=== PATIENT | male | born 1970 | race African-American/Black ===

== ENCOUNTER 2019-01-05 14:00 | Outpatient (RCR) | payer OTHER | END 2019-04-05 | disposition home or self-care (01) | LOC: WSC | DX: Z02.71 Encounter for disability determination (principal) ==

== ENCOUNTER → 2019-01-30 | Outpatient (CLI) | payer OTHER | LOC: COL.RAD 09:21 | DX: Z02.71 Encounter for disability determination (principal); M17.11 Unilateral primary osteoarthritis, right knee; M77.31 Calcaneal spur, right foot; M46.95 Unspecified inflammatory spondylopathy, thoracolumbar region; M48.07 Spinal stenosis, lumbosacral region; Z87.81 Personal history of (healed) traumatic fracture; Z98.890 Other specified postprocedural states ==

== ENCOUNTER 2023-07-07 16:17 | Inpatient (IN) | payer BC ==
[2023-07-07] VITALS (7 sets, daily range): BP systolic 138–198; BP diastolic 75–139; PULSE 89–113; TEMP 98.2–98.6
[~2023-07-07] VITALS: Ht 172.7 cm; Wt 204.0 kg
[2023-07-07 16:56] LABS: BASO # 0.1 K/mm3 (0.0-0.2); BASO % 0.8 % (0.0-2.0); EOS # 0.1 K/mm3 (0.0-0.7); EOS % 1.2 % (0.0-4.0); GRAN # 4.6 K/mm3 (1.4-6.5); GRAN % 60.9 % (42.2-75.2); HEMOGLOBIN 12.9 g/dl (13.5-18.0); LYMPH # 1.9 K/mm3 (1.2-3.4); LYMPH % 25.1 % (20.0-51.0); MEAN CELL VOLUME 83 fl (80.0-100.0); MEAN CORPUSCULAR HEMOGLOBIN 25 pg (27-31); MEAN CORPUSCULAR HGB CONC 31 g/dl (33.0-37.0); MEAN PLATELET VOLUME 9.3 fl (7.4-10.4); MONO # 0.9 K/mm3 (0.1-0.6); MONO % 11.9 % (1.7-9.3); PLATELET COUNT 307 K/mm3 (130-400); RED BLOOD COUNT 5.08 M/mm3 (4.20-5.60); REDCELL DISTRIBUTION WIDTH-CV 16.6 % (11.5-14.5)
[2023-07-07 17:06] LABS: INR 1.2 (0.8-3.0); PROTHROMBIN TIME 12.7 SECONDS (9.7-12.8)
[2023-07-07 17:15] LABS: ALANINE AMINOTRANSFERASE 12 U/L (0-55); ALBUMIN 2.9 g/dL (3.5-5.0); ALKALINE PHOSPHATASE 60 U/L (40-150); ANION GAP 12 mmol/L (7-16); AST,SGOT 13 U/L (5-34); BILIRUBIN,TOTAL 0.2 mg/dL (0.2-1.2); BLOOD UREA NITROGEN 15 mg/dL (8-26); CALCIUM 9.5 mg/dL (8.4-10.2); CHLORIDE 103 mEq/L (98-107); CREATININE, serum 1.07 mg/dL (0.72-1.25); GLUCOSE 102 mg/dL (70-99); POTASSIUM 4.4 mEq/L (3.5-4.5); SODIUM 139 mEq/L (136-145); TOTAL PROTEIN 8.6 g/dl (6.2-8.1)
[2023-07-07 17:22] LABS: TROPONIN-I < 0.010 ng/mL (0.00-0.033)
[2023-07-07] MEDS ORDERED: hydrALAZINE 20 MG/ML 1 ML VIAL IV ONE (18:30)
[2023-07-07] MEDS ORDERED: amLODIPine 5 MG TAB PO SCH (18:45)
[2023-07-07] MEDS ORDERED: Acetaminophen 325 MG TAB PO PRN (18:45)
[2023-07-07] MEDS ORDERED: niCARdipine 200 ML IV ONE (18:45)
[2023-07-07] MEDS ORDERED: Lisinopril 20 MG TAB PO SCH (18:45)
[2023-07-07] MEDS ORDERED: niCARdipine 200 ML IV SCH (19:15)
[2023-07-07] MEDS ORDERED: Heparin 5,000 UNITS/ML 1 ML VIAL IV ONE (19:30)
[2023-07-07] MEDS ORDERED: Heparin 5,000 UNITS/ML 1 ML VIAL IV PRN (19:30)
[2023-07-07] MEDS ORDERED: Heparin/D5W 250 ML IV SCH (19:30)
[2023-07-07 20:24] LABS: PARTIAL THROMBOPLASTIN TIME 31.8 SECONDS (26.0-37.0)
[2023-07-07] MEDS ORDERED: HYDROmorphone 0.5 MG/0.5 ML SYRINGE IV PRN (21:00)
[2023-07-07] MEDS ORDERED: Tetanus,Diphther Toxoid Adult 0.5 ML SYRINGE IM ONE (22:30)
[2023-07-08] VITALS (298 sets, daily range): BP systolic 140–164; BP diastolic 85–111; PULSE 80–92; TEMP 98–98.6; O2SAT 85–100
[2023-07-08 04:17] LABS: BASO % 0.4 % (0.0-2.0); EOS # 0.1 K/mm3 (0.0-0.7); EOS % 1.3 % (0.0-4.0); GRAN # 4.5 K/mm3 (1.4-6.5); GRAN % 60.9 % (42.2-75.2); HEMATOCRIT 38.9 % (42.0-52.0); HEMOGLOBIN 12.6 g/dl (13.5-18.0); LYMPH % 26.5 % (20.0-51.0); MEAN CELL VOLUME 80 fl (80.0-100.0); MEAN CORPUSCULAR HEMOGLOBIN 26 pg (27-31); MEAN CORPUSCULAR HGB CONC 32 g/dl (33.0-37.0); MEAN PLATELET VOLUME 9.2 fl (7.4-10.4); MONO # 0.8 K/mm3 (0.1-0.6); MONO % 10.6 % (1.7-9.3); PLATELET COUNT 287 K/mm3 (130-400); RED BLOOD COUNT 4.84 M/mm3 (4.20-5.60); REDCELL DISTRIBUTION WIDTH-CV 16.5 % (11.5-14.5)
[2023-07-08 04:35] LABS: CALCIUM 8.7 mg/dL (8.4-10.2); CREATININE, serum 0.85 mg/dL (0.72-1.25); POTASSIUM 4.4 mEq/L (3.5-4.5)
[2023-07-08 05:11] LABS: C-REACTIVE PROTEIN 7.16 mg/dL (0.00-0.50)
--- NOTE | 2023-07-08 07:21 | NUR ---
RECEIVED REPORT FROM N[employer]SHIFT RNALIYAH. PATIENT RESTING IN BED WITH EYES CLOSED AT THIS TIME. BED IN A LOW POSITION. CALL LIGHT WITHIN REACH.
--- NOTE | 2023-07-08 08:10 | NUR ---
HEAD TO TOE ASSESSMENT COMPLETED. PATIENT ALERT AND ORIENTED. PUPILS EQUAL AND REACTIVE. HEART SOUNDS REGULAR WITH S1 AND S2 NOTED. LUNG SOUNDS CLEAR BILATERALLY WITH DIMINISHING NOTED IN BASES BILATERALLY. BOWEL SOUNDS ACTIVE X4. PATIENT ABLE TO VOID INDEPENDENTLY USING URINAL. PULSES PRESENT AND EQUAL BILATERALLY IN UPPER AND LOWER EXTREMITIES. PATIENT HAS EDEMA NOTED TO LOWER HALF OF BODY. PATIENT HAS COMPLAINTS OF PAIN TO RIGHT LOWER EXTREMITY IN CALF AREA. MEDICATIONS ADMINISTERED PER EMAR. PATIENT DENIES CONCERNS OR NEEDS AT THIS TIME. BED IN A LOW POSITION, ALARM ON. CALL LIGHT WITHIN REACH.
[2023-07-08] MEDS ORDERED: Labetalol 100 MG TAB PO SCH (10:51)
[2023-07-08] MEDS ORDERED: ceFAZolin 2 G in Water For Injection,Sterile 20 ML IV SCH (11:00)
[2023-07-08] MEDS ORDERED: Furosemide 40 MG TAB PO ONE (13:45)
--- NOTE | 2023-07-08 14:05 | NUR ---
merchant mill utility worker attended clinical rounding and met with patient to complete discharge assessment. Patient states that he lives with his , is independent with his activities of daily living, and works from home. Patient states he has had [facility] for years and has never had to use it. Patient states that he has an appointment in August to establish care at the [facility], however, doesn't remember what the physician's name is. Patient states his goes to this physician as well. Patient states he does not have advance directives and does not wish any information on them at this time. Discharge plan: Patient plans to return home with spouse.
[2023-07-08] MEDS ORDERED: Perflutren Lipid Microsphere 2 ML VIAL IV SCH (15:50)
--- NOTE | 2023-07-08 16:13 | NUR ---
REPORT CALLED TO JOURNEYMAN LINEMANAJMES. PATIENT TRANSFERRED VIA BED TO ROOM 330. ALL BELONGINGS AND CHART TAKEN WITH PATIENT.
[2023-07-08] MEDS ORDERED: TYLENOL 325MG325 MG PO (17:19)
[2023-07-08] MEDS ORDERED: TYLENOL PM EXTR1 TA1 PO (17:20)
--- NOTE | 2023-07-08 17:50 | NUR ---
Patient transferred from ICU to room 330. Patient tolerated dinner without problem. He reports elevated pain to his RLE. Open wound noted, foam dressing applied to wound. wound is to inner side of calf. Patient reports this has been on going for a few weeks. Pain rating 6. One tab norco as ordered. When completing med rec, patient reports he had been taking large amounts of tylneol at home. Int X2 Assisted patient to position in bed for comfort. Patient using urinal to void. Will monitor
[2023-07-08] MEDS ORDERED: amLODIPine 5 MG TAB PO ONE (18:15)
[2023-07-08] MEDS ORDERED: hydroCHLOROthiazide 25 MG TAB PO ONE (18:15)
[2023-07-09 03:46] VITALS: BP 145/89; PULSE 80; TEMP 98.2
[2023-07-09 04:00] VITALS: BP_SYST 145
[2023-07-09 06:59] LABS: BASO % 0.5 % (0.0-2.0); EOS # 0.1 K/mm3 (0.0-0.7); EOS % 2.1 % (0.0-4.0); GRAN # 3.5 K/mm3 (1.4-6.5); GRAN % 60.4 % (42.2-75.2); HEMATOCRIT 40.3 % (42.0-52.0); HEMOGLOBIN 12.5 g/dl (13.5-18.0); LYMPH # 1.4 K/mm3 (1.2-3.4); LYMPH % 24.2 % (20.0-51.0); MEAN CELL VOLUME 81 fl (80.0-100.0); MEAN CORPUSCULAR HEMOGLOBIN 25 pg (27-31); MEAN CORPUSCULAR HGB CONC 31 g/dl (33.0-37.0); MEAN PLATELET VOLUME 9.3 fl (7.4-10.4); MONO # 0.7 K/mm3 (0.1-0.6); MONO % 12.5 % (1.7-9.3); PLATELET COUNT 296 K/mm3 (130-400); RED BLOOD COUNT 4.99 M/mm3 (4.20-5.60); REDCELL DISTRIBUTION WIDTH-CV 16.5 % (11.5-14.5)
[2023-07-09 07:14] LABS: CREATININE, serum 1.02 mg/dL (0.72-1.25); POTASSIUM 4.6 mEq/L (3.5-4.5)
[2023-07-09 07:24] VITALS: BP 150/96; PULSE 86; TEMP 98.2
[2023-07-09] MEDS ORDERED: amLODIPine 10 MG TAB PO SCH (09:00)
[2023-07-09 09:33] VITALS: BP_SYST 150
[2023-07-09] MEDS ORDERED: NORVASC 10MG10 MG PO (09:34)
[2023-07-09] MEDS ORDERED: ZESTRIL40 MG PO (09:37)
[2023-07-09] MEDS ORDERED: DOXYCYCLINE 10100 MG PO (09:38)
--- NOTE | 2023-07-09 09:38 | NUR ---
PT RESTING IN BED WITH NO PAIN AT THIS TIME. STEADY GAIT TO BATHROOM WITH SBA. PT TOELRATING DIET WELL, AND MEPOLEX DRESSING TO RIGHT CALF CLEAN AND DRY. NO NEEDS AT THIS TIME. WILL CONTINUE TO MONITOR.
[2023-07-09] MEDS ORDERED: NORCO 325 MG-51 TAB PO (11:26)
--- NOTE | 2023-07-09 12:04 | NUR ---
DISCHARGE INFORMATION PROVIDED TO PT. DISCUSSED FOLLOW UP APPOINTMENTS WITH PCP AND WOUND CARE, NEW MEDICAITONS AND THE IMPORTANCE OF DAILY USE, AND SIGNS OF WORSENING CELLULITIS. FACE SHEET SENT TO WOUND CARE OFFICE TO CALL PT FOR FOLLOW UP. IV'S REMOVED. NO QUESTIONS AT THIS TIME. PT AND BELONGINGS ESCORT OUT OF BUILDING AT THIS TIME.
== END 2023-07-09 12:00 | disposition home or self-care (01) | DRG 872 ==
LOC: COL.ER 16:17 → ICU 19:00 → SURG 07-08 16:34
PROVIDERS: Family Medicine; Nurse Practitioner Family; ADMIT Hospitalist
DX: A41.9 Sepsis, unspecified organism (principal); Z68.44 Body mass index [BMI] 60.0-69.9, adult; L03.115 Cellulitis of right lower limb; E66.01 Morbid (severe) obesity due to excess calories; I10 Essential (primary) hypertension; M10.9 Gout, unspecified; I16.0 Hypertensive urgency; I44.0 Atrioventricular block, first degree; R79.1 Abnormal coagulation profile; Z66 Do not resuscitate; Z87.891 Personal history of nicotine dependence
CPT/HCPCS: J0690; J1644; J1920; J2404; J3370; J7040; Q9957